=== PATIENT | female | born 1990 | race Caucasian/White ===

== ENCOUNTER 2019-06-29 20:22 | Emergency (ER) | payer SELFPAY ==
[2019-06-29 20:29] VITALS: BP 125/91; PULSE 96; TEMP 98.5; BMI 23.3
[2019-06-29 21:59] LABS: EPI CELLS 0.8 /HPF (0-5/HPF); HYALINE CASTS 9 /lpf (0-8); PH,URINE 5.5 (5.0-8.0); URINE APPEARANCE CLEAR; URINE BACTERIA 341.6 /hpf (NEGATIVE); URINE BILIRUBIN NEGATIVE (NEGATIVE); URINE COLOR YELLOW; URINE GLUCOSE (UA) NEGATIVE (NEGATIVE); URINE KETONE NEGATIVE (NEGATIVE); URINE LEUK ESTERASE TRACE (NEGATIVE); URINE NITRITE NEGATIVE (NEGATIVE); URINE PROTEIN NEGATIVE (NEGATIVE); URINE RBC 7 /hpf (0-4); URINE UROBILINOGEN 0.2 mg/dL (0.2-1.0); URINE WBC 24 /hpf (0-5)
[2019-06-29] MEDS ORDERED: PHENAZOPYRIDINE HCL 100 MG TABLET (FP) PO ONE (22:04)
[2019-06-29] MEDS ORDERED: PHENAZOPYRIDINE HCL 100 MG TABLET (FP) ONE (22:06)
--- NOTE | 2019-06-29 22:08 | PDOC ---
History of Present Illness - General Chief Complaint: Urinary Problem Stated Complaint: POSSIBLE/UTI Time Seen by Provider: 06/29/19 21:01 History Source: Patient Exam Limitations: Clinical Condition - History of Present Illness Initial Comments: 06/29/19 22:16 Patient with no significant past medical history presented with complaint of 1 month history of burning with urination, urinary frequency and intermittent suprapubic tenderness. Denies fever, chills, nausea or vomiting. Denies back pains. Patient did not take anything for symptoms Is this a multiple visit Asthma Patient?: No Timing/Duration: other (1 month) Severity: mild Past History - Past Medical History Allergies/Adverse Reactions: Allergies Allergy/AdvReac Type Severity Reaction Status Date / Time Sulfa (Sulfonamide Allergy Verified 06/29/19 20:29 Antibiotics) Home Medications: Ambulatory Orders Nitrofurantoin Monohyd/M-Cryst [Macrobid -] 100 mg PO BID #14 capsule 06/29/19 Phenazopyridine HCl [Pyridium -] 100 mg PO TID 2 Days #6 tablet 06/29/19 - Psycho Social/Smoking Cessation Hx Smoking History: Never smoked Hx Alcohol Use: No Drug/Substance Use Hx: No Review of Systems - Review of Systems Able to Perform ROS?: Yes Is the patient limited Beninese proficient: No Constitutional: No: Chills, Fever, Malaise HEENTM: No: Symptoms Reported Respiratory: No: Symptoms reported, See HPI, Cough, Orthopnea, Shortness of Breath, SOB with Exertion, SOB at Rest, Stridor, Wheezing, Productive cough, Hemoptysis, Other Cardiac (ROS): No: Symptoms Reported, See HPI, Chest Pain, Edema, Irregular Heart Rate, Lightheadedness, Palpitations, Syncope, Chest Tightness, Other ABD/GI: No: Symptoms Reported, See HPI, Nausea, Vomiting, Abdominal cramping : Yes: Symptoms Reported, See HPI, Burning, Dysuria, Frequency, Hematuria, Urgency. No: Discharge Musculoskeletal: No: Symptoms Reported, Back Pain Integumentary: No: Symptoms Reported All Other Systems: Reviewed and Negative *Physical Exam - Vital Signs Last Vital Signs Temp Pulse Resp BP Pulse Ox 98.5 F 96 H 20 125/91 99 06/29/19 20:24 06/29/19 20:24 06/29/19 20:24 06/29/19 20:24 06/29/19 20:24 - Physical Exam General Appearance: Yes: Nourished, Appropriately Dressed. No: Apparent Distress HEENT: positive: Normal ENT Inspection Neck: positive: Supple Respiratory/Chest: positive: Lungs Clear, Normal Breath Sounds. negative: Respiratory Distress, Accessory Muscle Use Cardiovascular: positive: Regular Rhythm, Regular Rate Gastrointestinal/Abdominal: positive: Normal Bowel Sounds, Flat, Soft. negative : Tender, Organomegaly Extremity: positive: Normal Capillary Refill, Normal Inspection Integumentary: positive: Normal Color Neurologic: positive: Fully Oriented, Alert, Normal Response ED Treatment Course - ADDITIONAL ORDERS Additional order review: Laboratory Results 06/29/19 06/29/19 21:49 21:30 Urine Color Yellow Urine Appearance Clear Urine pH 5.5 Ur Specific [place] 1.029 Urine Protein Negative Urine Glucose (UA) Negative Urine Ketones Negative Urine Blood 2+ H Urine Nitrite Negative Urine Bilirubin Negative Urine Urobilinogen 0.2 Ur Leukocyte Esterase Trace Urine WBC (Auto) 24 Urine RBC (Auto) 7 Urine Casts (Auto) 9 U Epithel Cells (Auto) 0.8 Urine Bacteria (Auto) 341.6 Urine HCG, Qual Negative Medical Decision Making - Medical Decision Making 06/29/19 22:19 Patient with no significant past medical history presented with complaint of 1 month history of burning with urination, urinary frequency and intermittent suprapubic tenderness. Denies fever, chills, nausea or vomiting. Denies back pains. Patient did not take anything for symptoms Clinical exam unremarkable with no abdominal tenderness on exam. No CVA tenderness. UA shows mild leukocytosis with WBCs. Urine hCG negative. Patient stable for discharge on Macrobid antibiotics twice daily for a week and Pyridium for discomfort with urology follow-up pending urine culture results Discharge - Discharge Information Problems reviewed: Yes Clinical Impression/Diagnosis: Dysuria Condition: Stable Disposition: HOME - Admission No - Additional Discharge Information Prescriptions: Nitrofurantoin Monohyd/M-Cryst [Macrobid -] 100 mg PO BID #14 capsule Phenazopyridine HCl [Pyridium -] 100 mg PO TID 2 Days #6 tablet - Follow up/Referral Referrals: Jason Blandon MD [Staff Physician] - - Patient Discharge Instructions Patient Printed Discharge Instructions: DI for Urinary Tract Infection (UTI) Additional Instructions: Your urine shows mild bacteria in the urine. Take prescribed medication as prescribed. Increase fluid intake. Follow-up referred to urologist if no improvement in 4 days - Post Discharge Activity
== END 2019-06-29 22:10 | disposition home or self-care (01) ==
LOC: JERFT 20:22
DX: R30.0 Dysuria (principal); Z88.2 Allergy status to sulfonamides
CPT/HCPCS: 81003; 84703; 87086; 87186; 99282-25